=== PATIENT | male | born 1980 | race Two or more races ===

== ENCOUNTER 2016-07-06 00:14 | Emergency (ER) | payer OTHER ==
[~2016-07-06] VITALS: Ht 172.7 cm; Wt 99.8 kg
[2016-07-06] MEDS ORDERED: SULFAMETH/TRIMETH 800/160 MG TABLET PO ONE (00:45)
[2016-07-06] MEDS ORDERED: TDAP DIPH,PERTUSS,TET VAC/PF 0.5 ML DISP.SYRIN IM ONE ×2 (00:45)
[2016-07-06] MEDS ORDERED: SULFAMETH/TRIMETH 800/160 MG TABLET ONE (00:45)
--- NOTE | 2016-07-06 00:55 | NUR ---
Patient discharged to home in stable conditon. Written and verbal after care instructions given. Patient verbalizes understanding of instructions.
== END 2016-07-06 00:56 | disposition home or self-care (01) ==
LOC: ER 00:19
DX: S81.832A Puncture wound without foreign body, left lower leg, initial encounter (principal); F10.20 Alcohol dependence, uncomplicated; X58.XXXA Exposure to other specified factors, initial encounter; Y93.89 Activity, other specified; Y99.8 Other external cause status; Y92.89 Other specified places as the place of occurrence of the external cause
CPT/HCPCS: 90471; 90715; 99283; A4663